=== PATIENT | male | born 1985 | race Caucasian/White ===

== ENCOUNTER 2023-03-12 16:46 | Emergency (ER) | payer OTHER ==
[2023-03-12 17:00] VITALS: BP 118/79; PULSE 98; RESP 20; TEMP 98.1; BMI 28.5
[2023-03-12] MEDS ORDERED: KETOROLAC TROMETHAMINE 30 MG/1 ML VIAL IM ONE (17:35)
[2023-03-12] MEDS ORDERED: KETOROLAC TROMETHAMINE 30 MG/1 ML VIAL ONE (18:02)
== END 2023-03-12 20:04 | disposition home or self-care (01) ==
LOC: JER 16:46
PROC: 3E0233Z Introduction of Anti-inflammatory into Muscle, Percutaneous Approach (ICD-10-PCS; principal; 2023-03-12)
DX: S86.212A Strain of muscle(s) and tendon(s) of anterior muscle group at lower leg level, left leg, initial encounter (principal); X50.9XXA Other and unspecified overexertion or strenuous movements or postures, initial encounter; Y93.01 Activity, walking, marching and hiking; Y92.009 Unspecified place in unspecified non-institutional (private) residence as the place of occurrence of the external cause
CPT/HCPCS: 73590-TC-LT-FY; 93971-TC; 99284-25

== ENCOUNTER 2024-02-12 18:00 | Emergency (ER) | payer OTHER ==
[2024-02-12 18:14] VITALS: BP 114/73; PULSE 92; RESP 18; TEMP 98.1; BMI 28.1
[2024-02-12] MEDS ORDERED: IBUPROFEN 600 MG TABLET (FP) PO ONE (18:34)
[2024-02-12] MEDS: IBUPROFEN 600 MG TABLET (FP) PO ONE (18:35)
== END 2024-02-12 19:28 | disposition home or self-care (01) ==
LOC: JERFT 18:00
DX: S90.932A Unspecified superficial injury of left great toe, initial encounter (principal); X50.0XXA Overexertion from strenuous movement or load, initial encounter
CPT/HCPCS: 73660-TC-LT-FY; 99283-25